=== PATIENT | male | born 1960 | race Caucasian/White ===

== ENCOUNTER 2021-11-21 09:42 | Outpatient (REF) | payer SELFPAY ==
[2021-11-21 11:30] LABS: COVID-19 Test Negative (Negative); IDNOW Serial# 16C4AD1C
== END 2021-11-21 09:43 | disposition home or self-care (01) ==
LOC: HO.LAB 09:42
PROVIDERS: Visit Provider Internal Medicine
DX: Z20.822 Contact with and (suspected) exposure to COVID-19 (principal)
CPT/HCPCS: 87635; C9803